=== PATIENT | male | born 1990 | race African-American/Black ===

== ENCOUNTER 2023-08-20 18:09 | Inpatient (IN) | payer SELFPAY ==
[~2023-08-20] VITALS: Ht 193 cm; Wt 66.7 kg
[2023-08-20] MEDS: ONDANSETRON HCL 4MG/2ML INJ IV STA ×2 (19:02→21:12)
[2023-08-20] MEDS: MORPHINE SULFATE 4 MG/ML INJ (FOR IV/IM USE) IV STA ×2 (19:02→21:12)
[2023-08-20] MEDS: SODIUM CHLORIDE 0.9% 1,000 ML IV ONE (19:03)
[2023-08-20 19:31] LABS: CHLORIDE 98 mEq/L (98-107); SODIUM 132 mEq/L (136-145)
[2023-08-20 19:32] LABS: CALCIUM 9.8 mg/dL (8.7-10.4); CARBON DIOXIDE 23 mEq/L (21-32)
[2023-08-20 19:35] LABS: INR 1.5; PROTHROMBIN TIME 16.3 sec (9.6-11.0)
[2023-08-20 19:37] LABS: CREATININE 1.3 mg/dL (0.6-1.3); GLUCOSE 109 mg/dL (70-105); UREA NITROGEN BLOOD 6 mg/dL (9-23)
[2023-08-20 19:39] LABS: ALANINE AMINOTRANSFERASE 33 IU/L (10-49); ALBUMIN 4.1 g/dL (3.2-4.8); ASPARTATE AMINOTRANSFERASE 41 IU/L (<34); BILIRUBIN DIRECT 0.3 mg/dL (<=3.0)
[2023-08-20 19:40] LABS: BILIRUBIN TOTAL 0.9 mg/dL (0.1-1.0); PROTEIN TOTAL 6.9 g/dL (6.0-8.3)
[2023-08-20 20:37] LABS: CLARITY URINE CLEAR (CLEAR); COLOR URINE YELLOW (YELLOW); GLUCOSE URINE NEGATIVE (NEGATIVE); KETONES URINE TRACE (NEGATIVE); LEUKOCYTE ESTERASE URINE NEGATIVE (NEGATIVE); NITRITE URINE NEGATIVE (NEGATIVE); OCCULT BLOOD URINE TRACE (NEGATIVE); PROTEIN URINE 1+ (NEGATIVE); SPECIFIC GRAVITY URINE 1.013 (1.005-1.030); UROBILINOGEN URINE 0.2 E.U./dL (0.2-1.0)
[2023-08-20 20:38] LABS: HEMATOCRIT. 40.1 % (42.0-52.0); HEMOGLOBIN. 13.4 g/dL (14.0-18.0); MEAN CORPUSCULAR HEMOGLOBIN 28.9 pg (28.0-32.0); MEAN CORPUSCULAR HGB CONC 33.5 g/dL (31.0-37.0); MEAN CORPUSCULAR VOLUME 86.3 fL (80.0-94.0); MEAN PLATELET VOLUME 8.1 fl (7.4-10.4); PLATELET 130 x1000/uL (130-400); RED BLOOD CELL COUNT 4.64 mill/uL (4.7-6.1); RED CELL DISTRIBUTION WIDTH 13.5 % (11.6-14.6); WHITE BLOOD COUNT 9.2 x1000/uL (4.5-11.0)
[2023-08-20 20:41] LABS: DIFFERENTIAL COMMENT 1
[2023-08-20 20:57] LABS: BACTERIA URINE 1+; RBC URINE 0-2 /hpf (0-2); SQUAMOUS EPITHELIAL CELL URINE RARE /lpf (RARE/1+); WBC URINE NONE SEEN /hpf (0-2)
[2023-08-20] MEDS: PIPERACILLIN/TAZO 3.375G/50ML 50 ML IV SCH (21:11)
[2023-08-20] MEDS: ACETAMINOPHEN 325MG TABLET PO ONE (21:12)
[2023-08-20 21:16] LABS: PLATELET ESTIMATE NORMAL
[2023-08-20] MEDS ORDERED: IOHEXOL-300 100 ML BOTTLE ONE (21:45)
[2023-08-20 22:30] VITALS: BP 119/64; PULSE 77; RESP 20; TEMP 98.1
[2023-08-21] VITALS: BP 119/64; PULSE 77; RESP 20; TEMP 98.1
[2023-08-21] MEDS: SODIUM CHLORIDE 0.9% 1,000 ML IV SCH (02:15)
[2023-08-21] MEDS ORDERED: ONDANSETRON HCL 4MG/2ML INJ IV PRN ×2 (02:15→08:15)
[2023-08-21] MEDS ORDERED: IPRATROPIUM/ALBUTEROL 0.5-3(2.5)MG/3ML NEB HHN PRN (02:15)
[2023-08-21 03:40] LABS: HEMATOCRIT. 41.2 % (42.0-52.0); HEMOGLOBIN. 14.1 g/dL (14.0-18.0); MEAN CORPUSCULAR HEMOGLOBIN 29.2 pg (28.0-32.0); MEAN CORPUSCULAR HGB CONC 34.3 g/dL (31.0-37.0); MEAN CORPUSCULAR VOLUME 85.1 fL (80.0-94.0); MEAN PLATELET VOLUME 8.5 fl (7.4-10.4); PLATELET 138 x1000/uL (130-400); RED BLOOD CELL COUNT 4.84 mill/uL (4.7-6.1); WHITE BLOOD COUNT 9.1 x1000/uL (4.5-11.0)
[2023-08-21 04:00] VITALS: BP 138/83; PULSE 94; RESP 20; TEMP 97.8
[2023-08-21 04:13] LABS: CHLORIDE 99 mEq/L (98-107); POTASSIUM 2.9 mEq/L (3.5-5.1); SODIUM 136 mEq/L (136-145)
[2023-08-21 04:14] LABS: CALCIUM 9.6 mg/dL (8.7-10.4); CARBON DIOXIDE 28 mEq/L (21-32)
[2023-08-21] MEDS: KCL 20MEQ/100ML PREMIX 100 ML IV SCH (04:14)
[2023-08-21 04:19] LABS: CREATININE 1.1 mg/dL (0.6-1.3); GLUCOSE 99 mg/dL (70-105); TRIGLYCERIDE 68 mg/dL (0-150); UREA NITROGEN BLOOD 9 mg/dL (9-23)
[2023-08-21 04:20] LABS: DIFFERENTIAL COMMENT 1; LDL CHOLESTEROL 49 mg/dL (5-100)
[2023-08-21 04:21] LABS: CHOLESTEROL 116 mg/dL (<200); HDL CHOLESTEROL 55 mg/dL (>55)
[2023-08-21 04:22] LABS: T4 FREE 1.16 ng/dL (0.89-1.76); THYROID STIMULATING HORMONE 1.15 uIU/mL (0.55-4.78)
[2023-08-21] MEDS ORDERED: BUPIVACAINE HCL/PF 0.5% (5MG/ML) 10ML ONE (06:41)
[2023-08-21] MEDS: KCL 10MEQ/50ML PREMIX 50 ML IV NR (06:57)
[2023-08-21] MEDS ORDERED: FENTANYL CITRATE/PF 50MCG/ML 2ML VIAL ONE ×2 (07:03→07:24)
[2023-08-21] MEDS ORDERED: PROPOFOL 200MG/20ML VIAL IV ONE (07:03)
[2023-08-21] MEDS ORDERED: ROCURONIUM BROMIDE 10MG/ML VIAL 5ML IV ONE (07:03)
[2023-08-21] MEDS ORDERED: MIDAZOLAM HCL 2 MG/2 ML VIAL ONE (07:04)
[2023-08-21] MEDS ORDERED: SKIN ADHESIVE 0.7 GM EA TOP ONE (07:18)
[2023-08-21] MEDS ORDERED: CEFAZOLIN SODIUM 1000MG/VIAL ONE (07:39)
[2023-08-21] MEDS ORDERED: KETOROLAC 30MG/ML VIAL ONE (07:39)
[2023-08-21] MEDS ORDERED: ONDANSETRON HCL 4MG/2ML INJ ONE (07:39)
[2023-08-21] MEDS ORDERED: ESMOLOL HCL 10MG/ML 10ML VIAL IV ONE (07:39)
[2023-08-21] MEDS ORDERED: LIDOCAINE HCL 1% 10 MG/ML 10ML VIAL ONE (07:40)
[2023-08-21] MEDS ORDERED: GLYCOPYRROLATE 0.2 MG/ML 2ML VIAL ONE (07:41)
[2023-08-21] MEDS ORDERED: NEOSTIGMINE METHYLSULFATE 1MG/ML 10 ML VIAL ONE (07:41)
[2023-08-21] MEDS ORDERED: MEPERIDINE HCL/PF 25MG/ML CPJ IV PRN (08:15)
[2023-08-21] MEDS ORDERED: FENTANYL CITRATE/PF 50MCG/ML 2ML VIAL IV PRN (08:15)
[2023-08-21] MEDS ORDERED: HYDROMORPHONE HCL/PF 2MG/ML CPJ IV PRN (08:15)
[2023-08-21] MEDS ORDERED: MORPHINE SULFATE 4 MG/ML INJ (FOR IV/IM USE) IV PRN (09:15)
[2023-08-21] MEDS ORDERED: NALOXONE HCL 0.4MG/ML VIAL IV PRN (09:15)
[2023-08-21 12:00] VITALS: BP 130/81; PULSE 74; RESP 18; TEMP 100.4
[2023-08-21] MEDS: HYDROCODONE/ACETAMINOPHEN 5/325MG TABLET PO PRN (13:20)
[2023-08-21] MEDS: SODIUM CHLORIDE 0.9% INJ 3ML FLUSH IVF SCH (14:00)
[2023-08-21] MEDS: DEXT 5%/0.45% NACL KCL 20MEQ/L 1,000 ML IV SCH (15:06)
[2023-08-21 16:00] VITALS: BP 127/86; PULSE 85; RESP 19; TEMP 100.2
[2023-08-21 19:17] LABS: PLATELET ESTIMATE NORMAL
[2023-08-21 20:00] VITALS: BP 133/88; PULSE 92; RESP 20; TEMP 98.8
[2023-08-22] VITALS: BP_SYST 143; BP_SYST 152; BP_DIAS 78; BP_DIAS 83; PULSE 89; PULSE 97; RESP 20; TEMP 101.7; TEMP 97.7
[2023-08-22] MEDS: ONDANSETRON HCL 4MG/2ML INJ IV PRN (01:32)
[2023-08-22] MEDS: ACETAMINOPHEN 325MG TABLET PO PRN (01:33)
[2023-08-22 04:00] VITALS: PULSE 97; RESP 20; TEMP 101.7
[2023-08-22 08:00] VITALS: BP 141/89; PULSE 86; RESP 18; TEMP 97.9
[2023-08-22] MEDS: KCL 20MEQ/100ML PREMIX 100 ML IV SCH (11:00)
[2023-08-22 11:31] LABS: CHLORIDE 96 mEq/L (98-107); POTASSIUM 3.3 mEq/L (3.5-5.1); SODIUM 135 mEq/L (136-145)
[2023-08-22 11:32] LABS: CARBON DIOXIDE 28 mEq/L (21-32)
[2023-08-22 11:38] LABS: CREATININE 1.2 mg/dL (0.6-1.3); GLUCOSE 109 mg/dL (70-105); UREA NITROGEN BLOOD 10 mg/dL (9-23)
[2023-08-22 12:00] VITALS: BP 131/77; PULSE 85; RESP 19; TEMP 99.3
[2023-08-22 16:00] VITALS: BP 136/78; PULSE 103; RESP 19; TEMP 98.9
[2023-08-22 20:00] VITALS: BP 140/93; PULSE 81; RESP 20; TEMP 100.9
[2023-08-22] MEDS: CLONIDINE 0.1MG TABLET PO PRN (20:58)
[2023-08-23] VITALS: BP 141/89; PULSE 106; RESP 20; TEMP 98.6
[2023-08-23] MEDS: HYDROCODONE/ACETAMINOPHEN 5/325MG TABLET PO PRN (01:52)
[2023-08-23 04:00] VITALS: BP 149/82; PULSE 80; RESP 20; TEMP 99
[2023-08-23] MEDS: MORPHINE SULFATE 2 MG/ML CPJ (NOT FOR IM USE) IV PRN (04:59)
[2023-08-23 08:00] VITALS: BP 145/94; PULSE 93; RESP 18; TEMP 97.5
[2023-08-23 09:15] VITALS: RESP 18
[2023-08-23 13:06] VITALS: BP 142/73; PULSE 90; TEMP 98.1; O2SAT 96
== END 2023-08-23 14:56 | disposition home or self-care (01) | DRG 234 ==
LOC: ER 18:09 → 6EST 22:50
PROVIDERS: ADMIT Hospitalist; ATTEND Hospitalist
PROC: 0DTJ4ZZ Resection of Appendix, Percutaneous Endoscopic Approach (ICD-10-PCS; principal; 2023-08-21)
DX: K35.80 Unspecified acute appendicitis (principal); E87.1 Hypo-osmolality and hyponatremia; K38.1 Appendicular concretions; E87.6 Hypokalemia; F17.200 Nicotine dependence, unspecified, uncomplicated; R50.82 Postprocedural fever
CPT/HCPCS: 36415; 74177; 80048; 80061; 80076; 81003; 83735; 84439; 84443; 85025; 86850; 86900; 87186; 88304; 93970; 99285; J0690; J1885; J2250; J2270; J2405; J2543; J2704; J2710; J3010; J3480; J3490; J7030; Q9967